=== PATIENT | female | born 1985 | race Caucasian/White ===

== ENCOUNTER 2023-04-17 12:18 | Emergency (ER) | payer OTHER, SELFPAY ==
--- NOTE | ~2023-04-17 | XR_ITS ---
EXAMINATION: XR mandible min 4V INDICATION: Facial injury TECHNIQUE: Four views of the mandible are obtained. COMPARISON: None available FINDINGS: No displaced mandibular fracture is identified. The soft tissues appear unremarkable. There is mild cervical spondylosis. IMPRESSION: 1. No displaced mandibular fracture identified. If there is high clinical suspicion for mandible frac ture, further evaluation with CT is recommended. Reviewed, dictated and finalized at location [facility] IMPRESSION: 1. No displaced mandibular fracture identified. If there is high clinical suspi cion for mandible fracture, further evaluation with CT is recommended.
[2023-04-17 12:24] VITALS: BP 142/84; PULSE 116; RESP 18; TEMP 36.7; O2SAT 100
--- NOTE | 2023-04-17 12:45 | ED.GENADULT ---
HPI - General Adult General Chief complaint: Unspecified Stated complaint: jaw injury Time Seen by Provider: 04/17/23 12:23 Source: patient Mode of arrival: ambulatory Limitations: no limitations History of Present Illness HPI narrative: Jeniffer is a 38-year-old female patient presenting to the ER today with complaints of a jaw injury after falling. She reports she fell this morning and a chair landed on top of her chest. Is reporting bruising and swelling to the chin with discomfort. Related Data Allergies Allergy/AdvReac Type Severity Reaction Status Date / Time gabapentin AdvReac Other Verified 04/17/23 12:28 morphine AdvReac Other Verified 04/17/23 12:28 Review of Systems Review of Systems: Pertinent positives per HPI. Patient denies any fever, chills, rash, headache, visual changes, dizziness, cough, runny nose, sore throat, shortness of breath, chest pain, palpitations, nausea, vomiting, diarrhea, constipation, abdominal pain, or any urinary issues. PMFSH Comments At the time of my signature, I reviewed and agree with the nursing past medical, surgical, social, and family history. There is no relevant family history pertinent to the patient complaint. Exam Narrative: General: Well-developed, well nourished, in no apparent distress Head: Normocephalic, atraumatic. Cardio: Regular rate and rhythm, s1 and s2 normal, no murmur appreciated. Resp: Clear to auscultation bilaterally, no rhonchi, rales, wheezing or rubs. Musculoskeletal: No deformity, tender to palpation over the chin with bruising and swelling noted, grossly normal range of motion, muscle strength strong and equal, peripheral pulse strong, no edema, no cyanosis, normal gait and station Course Course Emergency Course: Portions of this record may have been created with voice recognition software. Vital Signs Vital signs: Vital Signs Temperature 36.7 C 04/17/23 12:24 Pulse Rate 116 H 04/17/23 12:24 Respiratory Rate 18 04/17/23 12:24 Blood Pressure 142/84 H 04/17/23 12:24 Pulse Oximetry 100 04/17/23 12:24 Oxygen Delivery Room Air 04/17/23 12:24 Temperature 36.7 C 04/17/23 12:24 Pulse Rate 116 H 04/17/23 12:24 Respiratory Rate 18 04/17/23 12:24 Blood Pressure 142/84 H 04/17/23 12:24 Pulse Oximetry 100 04/17/23 12:24 Oxygen Delivery Room Air 04/17/23 12:24 Vital signs reviewed Medical Decision Making MDM Narrative Medical decision making narrative: At the time of visit patient is resting comfortably on the exam table. X-ray of the mandible was performed and negative for any sign of fracture or malalignment. Differential Diagnosis Differential Diagnosis: Facial contusion, mandible fracture, Vital Signs Vital Signs: Vital Signs Temperature 36.7 C 04/17/23 12:24 Pulse Rate 116 H 04/17/23 12:24 Respiratory Rate 18 04/17/23 12:24 Blood Pressure 142/84 H 04/17/23 12:24 Pulse Oximetry 100 04/17/23 12:24 Oxygen Delivery Room Air 04/17/23 12:24 Temperature 36.7 C 04/17/23 12:24 Pulse Rate 116 H 04/17/23 12:24 Respiratory Rate 18 04/17/23 12:24 Blood Pressure 142/84 H 04/17/23 12:24 Pulse Oximetry 100 04/17/23 12:24 Oxygen Delivery Room Air 04/17/23 12:24 Discharge Plan Discharge Clinical Impression: Contusion of chin Qualifiers: Encounter type: initial encounter Qualified Code(s): S00.83XA - Contusion of other part of head, initial encounter Patient Disposition: Home, Self-Care Condition: Stable Instructions: Antibiotic Form, Facial Contusion (ED) Additional Instructions: Percocet 1 tab po given in the ER today Prescription for naproxen was sent to the pharmacy. X-ray is negative for any sign of mandible fracture. Rest and ice Tylenol/naproxen for pain as discussed. Follow up with your PCP if symptoms persist more than 1 week. Prescriptions: New naproxen 500 mg tablet 500 mg PO BID PRN (Reason: pain) 7 Days Qty: 14 0
[2023-04-17] MEDS: oxyCODONE/ACETAMINOPHEN (*CRX) 5-325 MG TABLET 1 TABLET PO (14:27)
== END 2023-04-17 14:30 | disposition home or self-care (01) ==
PROVIDERS: Emergency Provider Nurse Practitioner Family; PCP Family Medicine
DX: S00.83XA Contusion of other part of head, initial encounter (principal); W19.XXXA Unspecified fall, initial encounter
CPT/HCPCS: 70110; 99283; A9270